=== PATIENT | male | born 1960 ===

== ENCOUNTER 2016-06-28 06:56 | Day surgery (SDC) | payer SELFPAY ==
[2016-06-28 07:32] VITALS: RESP 18
[2016-06-28 07:41] VITALS: BMI 33.5
[2016-06-28] MEDS ORDERED: Lidocaine 1% Inj (20ml) ONE (08:30)
[2016-06-28] MEDS ORDERED: Propofol 10 mg/ml Inj (20 ML) ONE (09:09)
[2016-06-28] MEDS ORDERED: Midazolam 2 MG/2 ML VIAL ONE (09:10)
[2016-06-28] MEDS ORDERED: Lidocaine 1% w Epi 1:100,000 Inj ONE (09:20)
--- NOTE | 2016-06-28 09:49 | CP.SDSHP ---
Same Day Surgery H & P - History Proposed Procedure: Right port removal Pre-Op Diagnosis: neck cancer - Allergies Allergies: Allergies No Known Allergies Allergy (Verified 11/06/13 15:58) - Physical Exam Vital Signs: Vital Signs 06/28/16 06/28/16 06/28/16 07:31 07:37 08:40 Temperature 98.3 F 97.3 F L Pulse Rate 75 75 74 Respiratory 18 18 Rate Blood Pressure 126/74 130/80 O2 Sat by Pulse 95 96 Oximetry Mental Status: Alert & Oriented x3 Neuro: WNL Heart: WNL Lungs: WNL - Impression Impression: Pt with right IJV port. He has completed chemotherapy. Plan port removal. Informed consent obtained. Pt. 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 Pt is discharged to home with instructions to keep port site dry for 3 days. No heavy lifting.
--- NOTE | 2016-06-28 09:50 | PCM.SURG1 ---
Surgeon's Initial Post Op Note - Surgeon's Notes Surgeon: Bala Leonard MD [employer] Project Manager: NONE Type of Anesthesia: IV Sedation Pre-Operative Diagnosis: Head and neck cancer nos Operative Findings: Right IJV port in place. Post-Operative Diagnosis: Head and neck cancer NOS Operation Performed: Right IJV port removal. Specimen/Specimens Removed: Port Estimated Blood Loss: EBL {In ML}: 2 Blood Products Given: N/A Drains Used: No Drains Post-Op Condition: Good Date of Surgery/Procedure: 06/28/16 Time of Surgery/Procedure: 09:45
--- NOTE | 2016-06-28 11:53 | VASCULAR ---
PROCEDURE: Date of study: 06/28/2016 Procedure: 1. Removal right IJ josé catheter, [id number] Medications: The patient sedated by the anesthesiologist with IV sedation along with physiologic monitoring, 8 cc 1 % Lidocaine, 1 gm Ancef EBL: 3 cc HISTORY: HEAD AND NECK CANCER STATUS POST COMPLETION OF CHEMOTHERAPY PRESENTS FOR PORT REMOVAL. TECHNIQUE: History and physical performed prior to the procedure. Following formed consent the procedure time-out, the patient placed supine on interval stable and the right neck and chest were prepped and draped in the usual sterile fashion. A fluoroscopic image showed a right IJ port catheter placement After the patient sedated by the anesthesiologist along with physiologic monitoring and the skin anesthetized with 1 percent lidocaine with epinephrine, an incision was made over the existing port scar with a 15. Scalpel The port was then removed by blunt dissection. The port and port catheter were then removed. Once hemostasis was achieved the port pocket was closed with absorbable 4 Polysorb sutures. Dressing was applied. Final chest radiograph showed removal of right IJ port catheter with no retained foreign bodies. IMPRESSION: Removal of right IJ port catheter.
[2016-06-28] MEDS: Lactated Ringer's 1,000 ML IV SCH (11:55)
[2016-06-28 13:43] VITALS: O2SAT 96
[2016-06-28 13:53] VITALS: BP 118/75; PULSE 68; TEMP 97.9
== END 2016-06-28 13:06 | disposition home or self-care (01) ==
LOC: H.OPSURG 06:56
PROVIDERS: ATTEND Specialist
DX: Z85.72 Personal history of non-Hodgkin lymphomas (principal); E11.9 Type 2 diabetes mellitus without complications; I10 Essential (primary) hypertension
CPT/HCPCS: 36590; 82948; A4310; J2001; J2250; J2704; J3010